=== PATIENT | female | born 1975 | race Caucasian/White ===

== ENCOUNTER → 2024-04-14 14:39 | Outpatient (REF) | payer OTHER, SELFPAY | LOC: HWWDC 14:39 | PROVIDERS: ATTENDING PHYSICIAN Nurse Practitioner | DX: Z12.31 Encounter for screening mammogram for malignant neoplasm of breast (principal) | CPT/HCPCS: 77063; 77067 ==

== ENCOUNTER 2024-09-05 06:18 | Day surgery (SDC) | payer OTHER, SELFPAY | END 2024-09-05 11:21 | disposition home or self-care (01) | LOC: GI 06:18 | PROVIDERS: ATTENDING PHYSICIAN Internal Medicine | DX: D12.0 Benign neoplasm of cecum (principal); D12.3 Benign neoplasm of transverse colon; K63.5 Polyp of colon; K64.8 Other hemorrhoids; R19.5 Other fecal abnormalities | CPT/HCPCS: 45385; 45380; 88305 ==

== ENCOUNTER → 2025-06-07 14:46 | Outpatient (REF) | payer OTHER, SELFPAY | LOC: WDC 14:46 | DX: Z12.31 Encounter for screening mammogram for malignant neoplasm of breast (principal) | CPT/HCPCS: 77063; 77067 ==

== ENCOUNTER → 2025-06-19 09:33 | Outpatient (REF) | payer OTHER, SELFPAY | LOC: WDC 09:33 | DX: R92.8 Other abnormal and inconclusive findings on diagnostic imaging of breast (principal) | CPT/HCPCS: 76642 ==